=== PATIENT | male | born 1960 | race Caucasian/White ===

== ENCOUNTER 2016-12-04 17:38 | Emergency (ER) | payer OTHER ==
[~2016-12-04 17:38] MED LIST: ALDACTONE25 MG PO; ASPIR 8181 MG PO; COL100 PO; CORE25 PO; GLUCOTROL5 MG PO; HUMALOG100 U/ML SC; HUMI SC; LIPI10 PO; NORCO1 TA2 PO; PRINIVIL20 MG PO
[2016-12-04 18:51] LABS: CALCIUM 8.7 mg/dL (8.5-10.1); CARBON DIOXIDE 26.2 mmol/L (21-32); CHLORIDE SERUM 108 mmol/L (98-107); GFR1 > 60 mL/min; GLUCOSE SERUM 144 mg/dL (74-106); SODIUM SERUM 146 mmol/L (136-145)
[2016-12-04 18:54] LABS: BASOPHIL % 1.2 % (0-2); PLATELET COUNT 256 x10^3mcL (130-400); RED CELL DISTRIBUTION WIDTH 13.3 % (11.5-14.5)
[2016-12-04 18:56] LABS: ALKALINE PHOSPHATASE 63 U/L (46-116); ALT/SGPT 36 U/L (16-63); AST/SGOT 27 U/L (15-37); BILIRUBIN TOTAL 0.39 mg/dL (0.20-1.00)
[2016-12-04 20:50] VITALS: BP 133/92
[2016-12-04 20:56] LABS: AMPHETAMINE QUAL UR NONE DETECTED (NEG <=1000)
== END 2016-12-04 22:42 | disposition home or self-care (01) ==
LOC: ED 17:38
PROVIDERS: Emergency Medicine Emergency Medical Services
DX: R06.02 Shortness of breath (principal); F10.129 Alcohol abuse with intoxication, unspecified; I11.0 Hypertensive heart disease with heart failure; I50.9 Heart failure, unspecified; E11.9 Type 2 diabetes mellitus without complications
CPT/HCPCS: 83880; 85378; G0480; J2060; Q0092

== ENCOUNTER 2019-05-01 03:07 | Emergency (ER) | payer OTHER, MEDICAID ==
[~2019-05-01] VITALS: Ht 157.5 cm; Wt 84.8 kg
[2019-05-01 03:11] VITALS: Ht 157.5 cm; Wt 84.8 kg
[2019-05-01 04:02] LABS: BASOPHIL % 1.4 % (0-2); PLATELET COUNT 313 x10^3mcL (130-400)
[2019-05-01 04:06] LABS: RED CELL DISTRIBUTION WIDTH 15.9 % (11.5-14.5)
[2019-05-01 04:15] LABS: CALCIUM 7.8 mg/dL (8.5-10.1); CARBON DIOXIDE 26.1 mmol/L (21-32); CHLORIDE SERUM 104 mmol/L (98-107); CREATININE SERUM 0.9 mg/dL (0.7-1.3); GFR1 > 60 mL/min; GLUCOSE SERUM 120 mg/dL (74-106); POTASSIUM SERUM 3.4 mmol/L (3.5-5.1); SODIUM SERUM 144 mmol/L (136-145)
[2019-05-01 04:21] LABS: ALBUMIN 3.9 g/dL (3.4-5.0); ALKALINE PHOSPHATASE 56 U/L (46-116); ALT/SGPT 23 U/L (16-63); AST/SGOT 20 U/L (15-37); BILIRUBIN TOTAL 0.5 mg/dL (0.20-1.00); TOTAL PROTEIN, SERUM 7.8 g/dL (6.4-8.2)
[2019-05-01 07:48] VITALS: BP 129/60
== END 2019-05-01 07:48 | disposition home or self-care (01) ==
LOC: ED 03:07
PROVIDERS: Emergency Medicine
DX: M94.0 Chondrocostal junction syndrome [Tietze] (principal); F10.129 Alcohol abuse with intoxication, unspecified; I11.0 Hypertensive heart disease with heart failure; I50.9 Heart failure, unspecified; E11.9 Type 2 diabetes mellitus without complications; E78.00 Pure hypercholesterolemia, unspecified; Z88.6 Allergy status to analgesic agent; Y90.9 Presence of alcohol in blood, level not specified
CPT/HCPCS: 36415; 83880; Q0092

== ENCOUNTER 2019-08-04 09:05 | Emergency (ER) | payer OTHER, MEDICAID ==
[~2019-08-04] VITALS: Ht 157.5 cm; Wt 86.6 kg
[2019-08-04 09:18] VITALS: Ht 157.5 cm; Wt 86.6 kg
[2019-08-04 11:46] VITALS: BP 122/76
== END 2019-08-04 11:46 | disposition home or self-care (01) ==
LOC: ED 09:05
DX: J20.9 Acute bronchitis, unspecified (principal); I11.0 Hypertensive heart disease with heart failure; I50.9 Heart failure, unspecified; E11.9 Type 2 diabetes mellitus without complications; E78.00 Pure hypercholesterolemia, unspecified; Z88.6 Allergy status to analgesic agent
CPT/HCPCS: J7512

== ENCOUNTER 2019-08-07 11:43 | Emergency (ER) | payer OTHER, MEDICAID ==
[~2019-08-07] VITALS: Ht 157.5 cm; Wt 89.4 kg
[2019-08-07 11:48] VITALS: Ht 157.5 cm; Wt 89.4 kg
[2019-08-07 12:33] LABS: BASOPHIL % 0.7 % (0-2); PLATELET COUNT 333 x10^3mcL (130-400)
[2019-08-07 12:35] LABS: RED CELL DISTRIBUTION WIDTH 15.7 % (11.5-14.5)
[2019-08-07 12:49] LABS: CALCIUM 8.2 mg/dL (8.5-10.1); CARBON DIOXIDE 30.2 mmol/L (21-32); CHLORIDE SERUM 107 mmol/L (98-107); GFR1 > 60 mL/min; GLUCOSE SERUM 118 mg/dL (74-106); POTASSIUM SERUM 3.8 mmol/L (3.5-5.1); SODIUM SERUM 144 mmol/L (136-145)
[2019-08-07 12:53] LABS: ALBUMIN 3.5 g/dL (3.4-5.0); ALKALINE PHOSPHATASE 61 U/L (46-116); ALT/SGPT 28 U/L (16-63); AST/SGOT 11 U/L (15-37); BILIRUBIN TOTAL 0.3 mg/dL (0.20-1.00); CHOLESTEROL 145 mg/dL (<200); CHOLESTEROL/HDL RATIO 2.6; HDL CHOLESTEROL 55 mg/dL (40-60); LIPASE 67 IU/L (73-393); TOTAL PROTEIN, SERUM 7.3 g/dL (6.4-8.2); TRIGLYCERIDES 64 mg/dL (<150)
[2019-08-07 13:06] LABS: T3 TOTAL 1.09 ng/mL
[2019-08-07 13:18] LABS: FREE T4 0.82 ng/dL (0.76-1.46); FREE THYROXINE INDEX 2.2 ug/dL (1.4-4.5); T4(THYROXINE) 5.2 ug/dL (4.7-13.3)
[2019-08-07 13:22] LABS: UA SPECIFIC GRAVITY 1.025 (1.005-1.035); microscopic required? YES; urine erythrocyte NEGATIVE (NEGATIVE)
[2019-08-07 13:29] LABS: AMPHETAMINE QUAL UR NONE DETECTED (See below)
[2019-08-07 15:00] VITALS: BP 141/98
== END 2019-08-07 15:00 | disposition home or self-care (01) ==
LOC: ED 11:43
PROVIDERS: Specialist
DX: I50.9 Heart failure, unspecified (principal); J40 Bronchitis, not specified as acute or chronic; I11.0 Hypertensive heart disease with heart failure; E11.9 Type 2 diabetes mellitus without complications; E78.00 Pure hypercholesterolemia, unspecified; Z88.6 Allergy status to analgesic agent
CPT/HCPCS: 36415; 36600; 83880; 84439; 87804; J7613; J7644; Q0092

== ENCOUNTER 2020-01-13 08:05 | Emergency (ER) | payer OTHER, MEDICAID ==
[~2020-01-13] VITALS: Ht 177.8 cm; Wt 81.6 kg
[2020-01-13 08:14] VITALS: Ht 177.8 cm; Wt 81.6 kg
[2020-01-13 09:10] LABS: BASOPHIL % 0.8 % (0-2); PLATELET COUNT 237 x10^3mcL (130-400); RED CELL DISTRIBUTION WIDTH 16.8 % (11.5-14.5)
[2020-01-13 11:32] VITALS: BP 127/87
== END 2020-01-13 11:32 | disposition home or self-care (01) ==
LOC: ED 08:05
PROVIDERS: Emergency Medicine
DX: M10.9 Gout, unspecified (principal); I11.0 Hypertensive heart disease with heart failure; I50.9 Heart failure, unspecified; E11.9 Type 2 diabetes mellitus without complications; E78.00 Pure hypercholesterolemia, unspecified; Z98.890 Other specified postprocedural states; Z88.6 Allergy status to analgesic agent
CPT/HCPCS: Q0092

== ENCOUNTER 2020-06-07 15:23 | Emergency (ER) | payer OTHER, MEDICAID ==
[~2020-06-07] VITALS: Ht 175.3 cm; Wt 77.1 kg
[~2020-06-07 15:23] MED LIST changes: +ASPIRIN FOR CHI81 M1 PO; +COR3 PO; +L40 PO; +LASIX40 MG PO; +LEVAQUIN500 M1 PO; +LISINOPRIL2.5 MG PO
== END 2020-06-07 22:26 ==
LOC: ED 15:23 → EDBD 15:23 → ED 15:23
DX: I46.9 Cardiac arrest, cause unspecified (principal); I11.0 Hypertensive heart disease with heart failure; I50.9 Heart failure, unspecified; E11.9 Type 2 diabetes mellitus without complications; Z88.6 Allergy status to analgesic agent